=== PATIENT | female | born 1980 | race Caucasian/White ===

== ENCOUNTER 2021-08-16 08:30 | Emergency (ER) | payer OTHER ==
[2021-08-16] MEDS ORDERED: VENTOLIN HFA IN18 GM INH (08:55)
== END 2021-08-16 09:04 | disposition home or self-care (01) ==
LOC: FER 08:30
DX: U07.1 COVID-19 (principal); J06.9 Acute upper respiratory infection, unspecified
CPT/HCPCS: 99284; U0002